=== PATIENT | female | born 1975 | race Caucasian/White ===

== ENCOUNTER → 2020-06-01 | Outpatient (CLI) | payer OTHER ==
[~2020-06-01] MED LIST: ASPIR-LOW81 MG PO; ASPIRIN EC81 MG PO; ATORVASTATIN CA20 MG PO; ATORVASTATIN CA80 MG PO; BRILINTA 90 MG90 MG PO; GLUCOPHAGE1000 MG PO; HABITROL 14 MG P1 EA TOP; IMDUR ER TAB 6060 MG PO; LISINOPRIL2.5 MG PO; LISINOPRIL5 MG PO; LOPRESSOR 25 MG25 MG PO; METFORMIN HCL1000 MG PO; METOPROLOL TART25 MG PO; NITROGLYCERIN0.4 MG SL; ZETIA10 MG PO
[2020-06-01 10:29] LABS: RED BLOOD COUNT 4.21 M/UL (4.00-5.10); WHITE BLOOD COUNT 12.6 K/UL (4.5-11.0)
[2020-06-01 10:47] LABS: BUN/CREATININE RATIO 15 (0-10)
== END ==
LOC: LAB 09:11
PROVIDERS: Internal Medicine Interventional Cardiology
DX: I25.10 Atherosclerotic heart disease of native coronary artery without angina pectoris (principal); E11.9 Type 2 diabetes mellitus without complications; R94.39 Abnormal result of other cardiovascular function study; R07.89 Other chest pain; R06.02 Shortness of breath; R94.31 Abnormal electrocardiogram [ECG] [EKG]
CPT/HCPCS: 36415; 80048; 85025; 85610; 85730; 93005

== ENCOUNTER → 2020-06-02 | Outpatient (CLI) | payer OTHER | LOC: CATH 07:24 | DX: I25.10 Atherosclerotic heart disease of native coronary artery without angina pectoris (principal); I10 Essential (primary) hypertension; I87.329 Chronic venous hypertension (idiopathic) with inflammation of unspecified lower extremity; I87.1 Compression of vein; E11.9 Type 2 diabetes mellitus without complications; D68.9 Coagulation defect, unspecified; I25.2 Old myocardial infarction; C53.9 Malignant neoplasm of cervix uteri, unspecified; K21.9 Gastro-esophageal reflux disease without esophagitis; E78.5 Hyperlipidemia, unspecified; Z95.5 Presence of coronary angioplasty implant and graft; Z79.84 Long term (current) use of oral hypoglycemic drugs; Z79.899 Other long term (current) drug therapy; Z88.0 Allergy status to penicillin; Z86.73 Personal history of transient ischemic attack (TIA), and cerebral infarction without residual deficits; Z87.891 Personal history of nicotine dependence | CPT/HCPCS: 82962; 93571; 99152; 99153; C1769; C1894; J0153; J1644; J2250; J3010; J7030; Q9967 ==

== ENCOUNTER → 2020-10-13 | Outpatient (CLI) | payer OTHER | LOC: HEART 5 09-29 13:30 → CT 09-29 15:00 → HEART 5 10-06 10:30 | DX: Z01.812 Encounter for preprocedural laboratory examination (principal); I87.329 Chronic venous hypertension (idiopathic) with inflammation of unspecified lower extremity | CPT/HCPCS: 82565; 84520; Q9967 ==

== ENCOUNTER → 2020-11-19 | Outpatient (CLI) | payer OTHER | LOC: HEART 5 10-22 09:30 | DX: I25.10 Atherosclerotic heart disease of native coronary artery without angina pectoris (principal) | CPT/HCPCS: 93306 ==

== ENCOUNTER → 2021-01-22 | Outpatient (CLI) | payer OTHER ==
[2021-01-22 14:55] LABS: BUN/CREATININE RATIO 12 (0-10)
== END ==
LOC: LAB 13:03
PROVIDERS: Internal Medicine Interventional Cardiology
DX: I25.10 Atherosclerotic heart disease of native coronary artery without angina pectoris (principal); E78.5 Hyperlipidemia, unspecified; I10 Essential (primary) hypertension; E11.9 Type 2 diabetes mellitus without complications
CPT/HCPCS: 36415; 80048; 83880